=== PATIENT | female | born 1965 | race African-American/Black ===

== ENCOUNTER 2018-07-31 10:33 | Outpatient (CLI) | payer BC | END 2018-07-31 10:34 | disposition home or self-care (01) | LOC: BICMAMMO 10:33 | PROVIDERS: ATTEND Obstetrics & Gynecology | DX: Z12.31 Encounter for screening mammogram for malignant neoplasm of breast (principal) | CPT/HCPCS: 77063; 77067 ==

== ENCOUNTER 2019-08-06 09:31 | Outpatient (CLI) | payer BC ==
--- NOTE | 2019-08-06 11:10 | MMO ---
Bilateral MAMMO Bilat Screen [facility]. CLINICAL HISTORY: Patient is 54 years old and is seen for screening. The patient has no family history of breast cancer. The patient has no personal history of cancer. VIEWS: The views performed were: bilateral craniocaudal with tomosynthesis and bilateral mediolateral oblique with tomosynthesis. FILMS COMPARED: The present examination has been compared to prior imaging studies performed at [facility] on 05/10/2015, 05/25/2015 and 02/02/2016, and at [facility] on 07/31/2018. This study has been interpreted with the assistance of computer-aided detection. MAMMOGRAM FINDINGS: There are scattered fibroglandular densities. Finding 1: There are stable benign appearing calcifications seen in both breasts. Finding 2: There are stable benign appearing densities seen in both breasts. There are no suspicious masses, suspicious calcifications, or new areas of architectural distortion. IMPRESSION: THERE IS NO MAMMOGRAPHIC EVIDENCE OF MALIGNANCY. A ROUTINE FOLLOW-UP MAMMOGRAM IN 1 YEAR IS RECOMMENDED. THE RESULTS OF THIS EXAM WERE SENT TO THE PATIENT. ACR BI-RADS Category 2 - Benign finding MAMMOGRAPHY NOTE: 1. A negative mammogram report should not delay a biopsy if a dominant of clinically suspicious mass is present. 2. Approximately 10% to 15% of breast cancers are not detected by mammography. 3. Adenosis and dense breasts may obscure an underlying neoplasm. Reported by: YADIRA JEAN MD Electonically Signed: [id number]
--- NOTE | 2019-08-06 12:19 | BD ---
DEXA BONE DENSITY EXAM: HISTORY: A 54-year-old postmenopausal female for screening. FINDINGS: LUMBAR SPINE BMD (g/cm2) T-SCORE L1 0.890 -0.9 L2 0.857 -1.6 L3 0.926 -1.4 L4 1.014 -0.4 TOTAL L1-L4 0.917 -1.2 LEFT FEMORAL NECK 0.827 -0.2 TOTAL PROXIMAL LEFT FEMUR 1.006 0.5 IMPRESSION: Osteopenia. This patient has a 10 year WHO fracture risk for a major osteoporotic fracture of 2.9% an d for a hip fracture of 0.1%. POS: CET
== END 2019-08-06 09:32 | disposition home or self-care (01) ==
LOC: BICMAMMO 09:31
PROVIDERS: ATTEND Nurse Practitioner Family
DX: Z12.31 Encounter for screening mammogram for malignant neoplasm of breast (principal); Z13.820 Encounter for screening for osteoporosis; N95.8 Other specified menopausal and perimenopausal disorders; M85.80 Other specified disorders of bone density and structure, unspecified site
CPT/HCPCS: 77063; 77067; 77080

== ENCOUNTER 2022-07-05 15:11 | Outpatient (CLI) | payer BC | END 2022-07-05 15:12 | disposition home or self-care (01) | LOC: BICRAD 15:11 | PROVIDERS: ATTEND Internal Medicine Rheumatology | DX: M54.59 Other low back pain (principal); M47.816 Spondylosis without myelopathy or radiculopathy, lumbar region | CPT/HCPCS: 72100 ==